=== PATIENT | male | born 1990 | race Caucasian/White ===

== ENCOUNTER 2020-01-13 19:30 | Emergency (ER) | payer MEDICAID ==
[~2020-01-13] VITALS: Ht 172.7 cm; Wt 95.3 kg
[2020-01-13 19:39] VITALS: BP 140/91
[2020-01-13] MEDS ORDERED: CEFTRIAXONE 500 MG VIAL ONE (19:56)
[2020-01-13] MEDS ORDERED: LIDOCAINE HCL/PF 2 % 5ML SDV 5 ML VIAL ONE (19:56)
[2020-01-13] MEDS ORDERED: AZITHROMYCIN 250 MG TABLET ONE ×2 (19:57→20:02)
[2020-01-13] MEDS ORDERED: AZITHROMYCIN 250 MG TABLET PO ONE (20:00)
[2020-01-13] MEDS ORDERED: CEFTRIAXONE 500 MG VIAL IM ONE (20:00)
== END 2020-01-13 20:13 | disposition home or self-care (01) ==
LOC: ER 19:33
DX: A64 Unspecified sexually transmitted disease (principal); E11.9 Type 2 diabetes mellitus without complications; Z98.890 Other specified postprocedural states
CPT/HCPCS: 87491; 87591; 96372; 99283; J0696; J3490

== ENCOUNTER 2021-05-09 10:31 | Emergency (ER) | payer MEDICAID ==
[~2021-05-09] VITALS: Ht 170.2 cm; Wt 89.4 kg
[2021-05-09 10:38] VITALS: BP 136/86
[2021-05-09] MEDS ORDERED: ACYC5CRE2 TP (11:00)
[2021-05-09] MEDS ORDERED: ACYC200C31 PO (11:00)
--- NOTE | 2021-05-09 11:06 | NUR ---
Patient discharged to home in stable condition. Written and verbal after care instructions given. Patient verbalizes understanding of instruction.
== END 2021-05-09 11:07 | disposition home or self-care (01) ==
LOC: ER 10:32
DX: B00.9 Herpesviral infection, unspecified (principal); A64 Unspecified sexually transmitted disease; E11.9 Type 2 diabetes mellitus without complications; Z98.890 Other specified postprocedural states

== ENCOUNTER 2021-07-09 12:55 | Emergency (ER) | payer MEDICAID ==
[~2021-07-09] VITALS: Ht 167.6 cm; Wt 86.2 kg
[~2021-07-09 12:55] MED LIST: ACYC200C31 PO; ACYC5CRE2 TP
[2021-07-09 13:05] VITALS: BP 145/96
--- NOTE | 2021-07-09 14:07 | NUR ---
IMMIGRATION INVESTIGATOR AT BEDSIDE FOR BLOOD DRAW
[2021-07-09] MEDS ORDERED: PENICILLIN G BENZATHINE 2.4 MMU/4 ML ML IM ONE (14:24)
[2021-07-09] MEDS: PENICILLIN G BENZATHINE 2.4 MMU/4 ML ML IM ONE (14:28)
--- NOTE | 2021-07-09 14:56 | NUR ---
Patient discharged to home in stable condition. Written and verbal after care instructions given. Patient verbalizes understanding of instruction.
== END 2021-07-09 14:58 | disposition home or self-care (01) ==
LOC: ER 13:05
DX: A51.0 Primary genital syphilis (principal); B99.8 Other infectious disease; E11.9 Type 2 diabetes mellitus without complications; Z79.899 Other long term (current) drug therapy
CPT/HCPCS: 87806; 96372; 99283; J0558

== ENCOUNTER 2021-07-31 09:02 | Emergency (ER) | payer MEDICAID ==
[~2021-07-31] VITALS: Ht 175.3 cm; Wt 83.9 kg
--- NOTE | 2021-07-31 09:25 | NUR ---
BIBS C/O SWOLLEN FORESKIN STARTED 07/29/21, NO REDNESS, DENIES PAIN. AMBULATORY, [id number]
--- NOTE | 2021-07-31 09:30 | NUR ---
AT BED SIDE
[2021-07-31] MEDS ORDERED: CEFTRIAXONE 1 G VIAL IM ONE (10:00)
[2021-07-31] MEDS ORDERED: LIDOCAINE 1% INJ 50 ML MDV IJ ONE (10:06)
[2021-07-31] MEDS ORDERED: CEFTRIAXONE 500 MG VIAL ONE (10:06)
[2021-07-31] MEDS ORDERED: MUPI22OI2 TP (10:11)
[2021-07-31] MEDS ORDERED: DOXY100T2 PO (10:11)
[2021-07-31] MEDS ORDERED: AMOX-430 PO (10:11)
--- NOTE | 2021-07-31 10:23 | NUR ---
Patient discharged to home in stable condition. Written and verbal after care instructions given. Patient verbalizes understanding of instruction.
[2021-07-31 10:24] VITALS: BP 130/95
== END 2021-07-31 10:25 | disposition home or self-care (01) ==
LOC: ER 09:07
DX: N48.21 Abscess of corpus cavernosum and penis (principal); Q55.8 Other specified congenital malformations of male genital organs; E11.9 Type 2 diabetes mellitus without complications; Z98.890 Other specified postprocedural states
CPT/HCPCS: 10060; 87491; 87591; 96372; 99283; J0696; J3490

== ENCOUNTER 2021-09-13 07:40 | Emergency (ER) | payer MEDICAID ==
[~2021-09-13] VITALS: Ht 175.3 cm; Wt 90.7 kg
[~2021-09-13 07:40] MED LIST changes: +AMOX-430 PO; +DOXY100T2 PO; +MUPI22OI2 TP
--- NOTE | 2021-09-13 07:49 | NUR ---
BIBS C/O COLD SORE ON L BOTTOM LIP X1 DAY, DENIES PAIN. VITALS ARE WITHIN NORMAL LIMITS.
[2021-09-13] MEDS ORDERED: VALA100026 PO (08:28)
[2021-09-13 08:38] VITALS: BP 132/84
--- NOTE | 2021-09-13 08:38 | NUR ---
Patient discharged to home in stable condition. Written and verbal after care instructions given. Patient verbalizes understanding of instruction.
== END 2021-09-13 08:38 | disposition home or self-care (01) ==
LOC: ER 07:44
DX: B00.1 Herpesviral vesicular dermatitis (principal); Z98.890 Other specified postprocedural states; Z79.899 Other long term (current) drug therapy

== ENCOUNTER 2021-09-24 23:04 | Emergency (ER) | payer MEDICAID ==
[~2021-09-24] VITALS: Ht 175.3 cm; Wt 90.7 kg
[~2021-09-24 23:04] MED LIST changes: +VALA100026 PO
[2021-09-25 00:07] VITALS: BP 122/57
[2021-09-25] MEDS ORDERED: IBUP-1957 PO (00:13)
[2021-09-25] MEDS ORDERED: CEPH500T PO (00:13)
[2021-09-25] MEDS ORDERED: SULF1TAB48 PO (00:13)
== END 2021-09-25 00:34 | disposition home or self-care (01) ==
LOC: ER 23:06
DX: L02.01 Cutaneous abscess of face (principal); Z79.899 Other long term (current) drug therapy

== ENCOUNTER 2024-10-17 11:33 | Emergency (ER) | payer MEDICAID ==
[~2024-10-17] VITALS: Ht 175.3 cm; Wt 86.2 kg
[~2024-10-17 11:33] MED LIST changes: +CEPH500T PO; +CLIN150C16 PO; +IBUP-1957 PO; +SULF1TAB48 PO
[2024-10-17 11:36] VITALS: BP 98/72; TEMP 98.2; O2SAT 99
[2024-10-17] MEDS ORDERED: PERM60CR4 TP (11:45)
== END 2024-10-17 12:34 | disposition home or self-care (01) ==
LOC: ER 11:40
DX: S21.139A Puncture wound without foreign body of unspecified front wall of thorax without penetration into thoracic cavity, initial encounter (principal); E11.9 Type 2 diabetes mellitus without complications; Z79.1 Long term (current) use of non-steroidal anti-inflammatories (NSAID); Z79.624 Long term (current) use of inhibitors of nucleotide synthesis; W57.XXXA Bitten or stung by nonvenomous insect and other nonvenomous arthropods, initial encounter; Y93.89 Activity, other specified; Y92.59 Other trade areas as the place of occurrence of the external cause; Y99.8 Other external cause status

== ENCOUNTER 2024-11-13 15:44 | Emergency (ER) | payer MEDICAID ==
[~2024-11-13] VITALS: Ht 172.7 cm; Wt 90.7 kg
[~2024-11-13 15:44] MED LIST changes: +PERM60CR4 TP
[2024-11-13] MEDS ORDERED: ONDANSETRON HCL/PF 4 MG/2 ML VIAL ONE ×2 (16:19→19:45)
[2024-11-13] MEDS ORDERED: KETOROLAC TROMETHAMINE 15 MG/ML VIAL ONE (16:19)
[2024-11-13] MEDS ORDERED: PANTOPRAZOLE 40 MG VIAL ONE (16:19)
[2024-11-13 16:20] LABS: PLATELET COUNT (AUTO) 250 K/uL (150-450); RED BLOOD CELL COUNT(AUTO) 5.10 MIL/uL (4.5-6.0); RED CELL DISTRIBUTION WIDTH 12.4 % (11.5-15.0); WHITE BLOOD COUNT (AUTO) 13.9 K/uL (4.3-11.0)
[2024-11-13] MEDS ORDERED: MAG HYDROX/AL HYDROX/SIMETH 30 ML UDC ONE (16:20)
[2024-11-13] MEDS ORDERED: ONDANSETRON HCL/PF - ER 4 MG/2 ML VIAL IV ONE (16:30)
[2024-11-13 16:32] LABS: ASPARTATE AMINOTRANSFERASE 11.0 U/L (15-37); CALCIUM, SERUM 9.2 mg/dL (8.5-10.1); CREATININE 1.0 mg/dL (0.6-1.3); SODIUM SERUM 131.0 mmol/L (136-145); TOTAL PROTEIN, SERUM 8.1 g/dL (6.4-8.2); UREA NITROGEN, BLOOD 17.0 mg/dL (7-18)
[2024-11-13] MEDS: IV NS 0.9% 1,000 ML BAG IV ONE (16:39)
[2024-11-13] MEDS: PANTOPRAZOLE 40 MG VIAL IV ONE (16:39)
[2024-11-13] MEDS: ONDANSETRON HCL/PF - ER 4 MG/2 ML VIAL IV ONE ×2 (16:40→19:51)
[2024-11-13] MEDS: KETOROLAC TROMETHAMINE 15 MG/ML VIAL IV ONE (16:42)
[2024-11-13] MEDS: MAG HYDROX/AL HYDROX/SIMETH 30 ML UDC PO ONE (16:43)
[2024-11-13 16:58] LABS: FRACTIONATED INSPIRED OXYGEN-V 21.0 %; SITE, VBG VBG - N/A; VBG BASE EXCESS -1.3 mmol/L (-2.0-3.0); VBG HCO3 23.0 mmol/L (22.0-29.0); VBG MetHb 0.4 % (0.5-1.5); VBG OXYGEN SATURATION 89.2 % (60.0-85.0); VBG PCO2 37.4 mmHg (38.0-54.0); VBG PH 7.407 (7.320-7.430); VBG PO2 57.3 mmHg (23.0-48.0); VBG TOTAL HEMOGLOBIN 14.4 G/dL (13.5-17.5)
[2024-11-13] MEDS ORDERED: ONDA4TAB11 PO (17:49)
[2024-11-13] MEDS ORDERED: METF-440 PO (17:49)
[2024-11-13 18:02] LABS: APPEARANCE,URINE CLEAR (CLEAR); BLOOD, URINE 1+ Ery/uL (NEGATIVE); LEUKOCYTE ESTERASE ,URINE NEGATIVE (NEGATIVE); NITRITE, URINE POSITIVE (NEGATIVE); UGLUCOSE 3+ mg/dL (NEGATIVE)
[2024-11-13 18:10] LABS: ADD URINE CULTURE YES; SQUAMOUS EPITHELIAL CELL,UR 0-2 /HPF (None Seen)
[2024-11-13] MEDS ORDERED: INSULIN REGULAR, HUMAN 100 UNIT/ML 10 ML VIAL ONE (18:14)
[2024-11-13] MEDS: INSULIN REGULAR, HUMAN 100 UNIT/ML 10 ML VIAL IV ONE (18:18)
[2024-11-13 20:57] VITALS: BP 141/95; TEMP 98.3; O2SAT 98
== END 2024-11-13 20:57 | disposition home or self-care (01) ==
LOC: ER 15:46
DX: R11.2 Nausea with vomiting, unspecified (principal); E11.65 Type 2 diabetes mellitus with hyperglycemia; Z79.1 Long term (current) use of non-steroidal anti-inflammatories (NSAID); Z79.624 Long term (current) use of inhibitors of nucleotide synthesis; Z79.84 Long term (current) use of oral hypoglycemic drugs; Z20.822 Contact with and (suspected) exposure to COVID-19; Z79.899 Other long term (current) drug therapy
CPT/HCPCS: 99285; 96374; 96375; 76705; 71045; 87426; 82803 ×2; 96376; 85025; 80048; 87086; 83690; 80076; 81001; 36415; 82962; 36600; J1885; J1815; J2405 ×5; J7030; J2470